=== PATIENT | female | born 1995 | race African-American/Black ===

== ENCOUNTER 2020-01-05 11:28 | Inpatient (IN) | payer OTHER ==
[2020-01-05] VITALS (30 sets, daily range): BP systolic 110–140; BP diastolic 61–91
[~2020-01-05] VITALS: Ht 160 cm; Wt 85.5 kg
[2020-01-05] MEDS: LR 1,000 ML IV SCH ×2 (00:30→21:35)
[2020-01-05] MEDS ORDERED: PRENTAB9 PO (11:54)
[2020-01-05] MEDS ORDERED: LACTATED RINGER'S 1000 ML IV STA (14:04)
--- NOTE | 2020-01-05 14:44 | HPEPDOC ---
Obstetrical History & Physical General Date of Admission Jan 05, 2020 at 14:00 History of Present Illness 24 yo at 41w1d with VIVIENNE of 12/28/2019 who presents to labor and delivery wi th complaints of contractions since 0100 this morning. She denies vaginal bleeding and leaking of fluid. She reports positive movement. Chief Complaint: Contractions, term Information Provided By: Patient Age: 24 : 1 Term: 0 Pre-term: 0 Abortions: 0 Livin Care Care: Good Care Number of Visits: 9 Dating Final EDC: Dec 28, 2019 Final EDC for Daily Update: Dec 28, 2019 Final EDC by: 1st trimester (US) LMP: Mar 31, 2019 1st Trimester Date: Jun 01, 2019 Weeks + Days: 10 (+0) Antepartum Course Diagnos(e)s Excessive weight gain during TWG 42# Height (inches): 64 Pre- weight (lbs.): 145 Admission Weight (lbs.): 187 Change in Weight (lbs.): 42 Past Medical History Past Obstetrical History : Past Obstetrical History: [employer] History: History of STD (history of chlamydia) Past Medical History Medical History Hgb C trait Surgical History: Denies/None Family History Significant Family History: Hypertension (Father, MGM, PGF), Lung disease (MGF: Lung CA), Other (PGF: Strokes, Mother and Brother: Sickle cell trait) Social History Marital Status: Single Psychosocial History: No pertinent psych hx * Smoker: non-smoker Alcohol: Denies Drugs: denies Abuse Violence Screening Have you been hit/kicked/slapp: No Have you been sexually assault: No Imunizations Tdap status: current Influenza Status: declined Allergies Coded Allergies: No Known Allergies (Unverified , 01/05/20) Medications Scheduled No.137/Iron/Folic Acd ( Vitamin Tablet) 1 Each Tablet, 1 TAB PO DAILY Physical Examination Physical Examination GENERAL: Alert and oriented times three. BREAST: . ABDOMEN: Gravid and non-tender to touch. FETUS: Is vertex (VTX) by sterile vaginal examination (SVE) and fetus is vertex (VTX) by Joshua. HEART RATE: Regular rate and rhythm. LUNGS: Clear to auscultation (CTA). EXTREMITIES: No edema. No clonus. Deep tendon reflexes (DTRs) + 2. Vital Signs/I&O Vital Signs Date Time Temp Pulse Resp B/P (MAP) Pulse Ox O2 Delivery O2 Flow Rate FiO2 01/05/20 13:09 96 18 131/61 (84) 01/05/20 11:52 98.6 98 Room Air Pertinent Laboratoy Data Blood Type: O+ RBC Antibody Screen: Negative HIV: Negative Hepatitis B: Negative Rapid Plasma Reagin: Nonreactive Rubella: Immune Varicella: Immune Chlamydia/Gonorrhea: Negative Group B Streptococcus: Negative Cystic Fibrosis: Negative Glucose Tolerance Test: 122 Anatomy Ultrasound Ultrasound Date: Sep 27, 2019 Placenta Location: Anterior Normal Anatomy: Yes Placenta Previa: No Estimated Weight (grams): 1053 Steroid Therapy Steroid Therapy: No Vaginal Examination Dilation: 4 cm (4-5) Effacement: 80% Station: -2 Cervical Consistency: Soft Cervical Position: Middle Presentation: Cephalic presentation Position: Vertex (occiput) Assessment Heart Rate (FHR): 145 Variability: Moderate Accelerations: Present Decelerations: None Tocometer Contractions: Yes Frequency: irregular Multi-drug resistant Organism: No history of MDRO Assessment/Plan Assessment The patient is a 24-year-old (G)1 para (P)0-0-0-0 at 41+1 weeks by 10- week ultrasound. Presents to Labor and Delivery (L&D) with complaints of contractions since 0100 this morning. Upon arrival to the unit for triage her cervical exam was 3/80/-3 and after 2 hours she has made cervical change to 4-5/80/-2, although her contractions did space out and became irregular. She reports that her contractions still remain painful despite becoming irregular. Post dates GBS negative Excessive weight gain in TW# Plan Admit and orient. Slot Supervisor and consent. Diet: clear liquids. Group B Streptococcus (GBS) negative. Labs and intravenous (IV) per unit protocol. Counseled on Pitocin and induction of labor (IOL). Lactated Ringers (LR): Bolus 1000 mL, then at 125 mL/hr. Anticipate normal spontaneous delivery (). C-S as appropriate. Labor and Delivery Counseling Discussed risks and process of laboring, post hemorrhage, possible need for using pitocin to augment her labor, and risks of section. All questions answered and she verbalized understanding of all information. HAROLDO BARRAGAN CNM Jan 05, 2020 14:43
[2020-01-05 14:50] LABS: HEMATOCRIT 34.2 % (36.0-47.0); MEAN CORPUSCULAR HEMOGLOBIN 26.4 pg (27.0-33.0); MEAN CORPUSCULAR HGB CONC 35.1 g/dl (32.0-36.5); MEAN CORPUSCULAR VOLUME 75.3 fl (80.0-96.0); PLATELET COUNT, AUTOMATED 212 10^3/uL (150-450); RED BLOOD COUNT 4.54 10^6/uL (4.00-5.40); WHITE BLOOD COUNT 10.4 10^3/uL (4.0-10.0)
[2020-01-05] MEDS ORDERED: FENTANYL 2MCG/ML ROPIVACAINE 0.2% IN 0.9% NACL 100ML IVBAG As Ordered ONE (20:27)
[2020-01-05] MEDS ORDERED: LACTATED RINGER'S 1000 ML IV PRN (20:35)
[2020-01-05] MEDS ORDERED: EPIDURAL COMMENT XX SCH (20:35)
[2020-01-05] MEDS ORDERED: REFRIGERATOR IV KEYS XX PRN (20:35)
[2020-01-05] MEDS: FENTANYL/ROPIVACAINE/NACL BAG 100 ML EPIDURAL SCH (20:35)
[2020-01-05] MEDS ORDERED: diphenhydrAMINE 50MG/ML VIAL (J1200) IV PRN (20:35)
[2020-01-05] MEDS ORDERED: NALOXONE INJ 0.4MG/1ML VIAL (J2310 PER 1MG) IV PRN (20:35)
[2020-01-05] MEDS ORDERED: EPIDURAL/PCA KEYS XX PRN (20:35)
[2020-01-05] MEDS ORDERED: ONDANSETRON 4MG/2ML VIAL IV PRN (20:35)
[2020-01-05] MEDS ORDERED: ePHEDrine SULFATE 25 MG/5 ML(5MG/ML) SYRINGE IV PRN (20:35)
[2020-01-05] MEDS ORDERED: OXYTOCIN 30 UNITS IN 0.9% NaCl 500ML IV BAG (J2590) As Ordered ONE (21:24)
--- NOTE | 2020-01-05 21:31 | IPNPDOC ---
Obstetrical Progress Note Date of Service Jan 05, 2020 Subjective Patient reports feeling very comfortable after epidural placement. Denies complaints. Objective Vital Signs Date Time Temp Pulse Resp B/P (MAP) Pulse Ox O2 Delivery O2 Flow Rate FiO2 01/05/20 18:03 98.2 70 18 131/83 (99) 01/05/20 11:52 98 Room Air Assessment Heart Rate (FHR): 125 Variability: Moderate Accelerations: Positive Decelerations: None Heart Rate Tracing: Category I Tocometer Contractions: Yes Frequency: every 3-7 min. Sterile Vaginal Examination Dilation: 4 cm Effacement (%): 90% Station: -2 Cervical Consistency: Soft Cervical Position: Posterior Postion/Presentation: Cephalic presentation Assessment and Plan Status: Reassuring Group B Streptococcus: Negative Anticipate: Vaginal Delivery Additional Comments 24yo at 41+1 admitted in latent labor at late term gestation. Patient received epidural and feeling much more comfortable. SVE revealed 4/90/-2. Patient counseled on augmentation of labor. Patient desired to proceed with AROM. AROM performed notable for clear fluid. Patient's ctx's continued to decrease in frequency to q7-10 minutes. Patient counseled on augmentation of labor with pitocin protocol and was amenable. Will start pitocin protocol now. FHRT cat I. Patient desires to proceed, safe to continue. BRENNA ALMANZA DO Jan 05, 2020 21:30
[2020-01-05] MEDS ORDERED: OXYTOCIN DRIP 30 UNITS in IV 1 EA IV SCH (21:45)
[2020-01-06] VITALS (24 sets, daily range): BP systolic 107–154; BP diastolic 56–89
[2020-01-06] MEDS ORDERED: diphenhydrAMINE 50MG/ML VIAL (J1200) As Ordered ONE (02:19)
--- NOTE | 2020-01-06 03:15 | IPNPDOC ---
Obstetrical Progress Note Date of Service Jan 06, 2020 Subjective Patient reports feeling comfortable with epidural but has had to do repositioning and epidural boluses to achieve this. Objective Vital Signs Date Time Temp Pulse Resp B/P (MAP) Pulse Ox O2 Delivery O2 Flow Rate FiO2 01/06/20 02:48 99.8 84 16 123/74 (90) 01/05/20 11:52 98 Room Air Assessment Heart Rate (FHR): 145 Variability: Moderate Accelerations: Positive Decelerations: Variable Heart Rate Tracing: Category II Tocometer Contractions: Yes Frequency: every 2-5 min. Sterile Vaginal Examination Dilation: 5 cm Effacement (%): 90% Station: -1 Cervical Consistency: Soft Cervical Position: Middle Postion/Presentation: Cephalic presentation Assessment and Plan Status: Reassuring Group B Streptococcus: Negative Anticipate: Vaginal Delivery Additional Comments 24yo at 41+2wks admitted for latent labor and late term gestation. FHRT has been intermittently cat II for variable decels, rare late decels but also reassuring with accels and early decels and moderate variability. Multiple positions attempted with right/left/back/sitting up with and without peanut ball. Unable to put on hands/knees due to epidural effect. FHRT improved with sitting up. Pitocin at 4mU/min. Ctx's q2-5 minutes apart with coupling noted intermittently. Will continue to monitor closely. Will consider IUPC with amnioinfusion if variables return. SVE noted to stretch to 5/90/-1 demonstrating cervical change since my last exam. BRENNA ALMANZA DO Jan 06, 2020 03:15
[2020-01-06] MEDS: FENTANYL/ROPIVACAINE/NACL BAG 100 ML EPIDURAL SCH ×2 (04:08→16:35)
--- NOTE | 2020-01-06 04:40 | IPNPDOC ---
Obstetrical Progress Note Date of Service Jan 06, 2020 Subjective Patient reports no complaints Objective Vital Signs Date Time Temp Pulse Resp B/P (MAP) Pulse Ox O2 Delivery O2 Flow Rate FiO2 01/06/20 02:48 99.8 84 16 123/74 (90) 01/05/20 11:52 98 Room Air Assessment Heart Rate (FHR): 140 Variability: Moderate Accelerations: None Decelerations: Variable Heart Rate Tracing: Category II Tocometer Contractions: Yes Frequency: every 2-5 min. Sterile Vaginal Examination Dilation: 5 cm Effacement (%): 90% Station: 0 Cervical Consistency: Soft Cervical Position: Middle Postion/Presentation: Cephalic presentation Assessment and Plan Status: Reassuring Group B Streptococcus: Negative Anticipate: Vaginal Delivery Additional Comments Recurrent variable decels nadiring to the 80s noted despite positional changes and IV fluid boluses. Pitocin turned off with minimal improvement in variable decels. SVE revealed 5/90/-1. Patient counseled on option of IUPC placement for amnioinfusion and FSE placement for closer monitoring of FHR due to broken tracing with variable decels. Patient willing to proceed with amnioinfusion and tolerated FSE/IUPC placement well. Will given 500ml NS for amnioinfusion. After amnioinfusion started, variable decels resolved with FHRT cat I. CTX's noted to be q2-3min on maternal effort alone. Reassuring status at this time. Will continue to monitor closely for expectant . BRENNA ALMANZA DO Jan 06, 2020 04:40
[2020-01-06] MEDS ORDERED: NS 1,000 ML IV ONE (04:45)
[2020-01-06] MEDS ORDERED: diphenhydrAMINE 50MG/ML VIAL (J1200) IV ONE (04:45)
[2020-01-06] MEDS: LR 1,000 ML IV SCH ×2 (06:20→09:04)
[2020-01-06] MEDS ORDERED: BICITRA 30ML SOLN UDC As Ordered ONE (07:13)
[2020-01-06] MEDS ORDERED: ceFAZolin 2 GM/D5W 50 ML IV BAG (J0690 PER 500MG) As Ordered ONE (07:13)
[2020-01-06] MEDS ORDERED: AZITHROMYCIN INJ 500MG VIAL (J0456 PER 500MG) As Ordered ONE (07:14)
--- NOTE | 2020-01-06 07:18 | IPNPDOC ---
Obstetrical Progress Note Date of Service Jan 06, 2020 Subjective Patient resting comfortably in bed. Reports no complaints. Objective Vital Signs Date Time Temp Pulse Resp B/P (MAP) Pulse Ox O2 Delivery O2 Flow Rate FiO2 01/06/20 05:18 99.8 106 18 118/63 (81) 01/05/20 11:52 98 Room Air Assessment Heart Rate (FHR): 140 Variability: Moderate Accelerations: Positive Decelerations: Late, Variable Heart Rate Tracing: Category II Tocometer Contractions: Yes Frequency: other (MVU inadequate 135) Sterile Vaginal Examination Dilation: 5 cm Effacement (%): 90% Station: -1 Cervical Consistency: Soft Cervical Position: Anterior Postion/Presentation: Cephalic presentation Assessment and Plan Status: Non-reassuring Group B Streptococcus: Negative Anticipate: Vaginal Delivery Additional Comments Patient has made minimal cervical change since AROM. Pitocin was turned off due to variable decels which have greatly improved after amnioinfusion but have returned to recurrent deep variables and intermittent late decels. Unable to augment labor due to cat II FHRT. Given clinical picture, patient counseled on recommendation to proceed with PLTCS for NRFHR remote from delivery. Patient counseled on the r/b/a/i of PLTCS, acknowledged understanding and desired to proceed. Written consents reviewed and signed. OR team notified. Ancef 2gm and Azithromycin 500mg IV enroute to OR. BRENNA ALMANZA DO Jan 06, 2020 07:18
[2020-01-06] MEDS ORDERED: MORPHINE PRES-FREE INJ 10 MG/10 ML VIAL (J2274) As Ordered ONE (07:23)
[2020-01-06] MEDS ORDERED: OXYTOCIN INJ 10 UNITS/ML VIAL (J2590) As Ordered ONE (07:24)
[2020-01-06] MEDS ORDERED: KETAMINE HCL 200 MG/20 ML VIAL As Ordered ONE (07:55)
[2020-01-06] MEDS ORDERED: MIDAZOLAM INJ 2MG/2ML VIAL (J2250 PER 1MG) As Ordered ONE (07:57)
[2020-01-06] MEDS ORDERED: ceFAZolin SOD 2 GM in IV 1 EA IV ONE (08:00)
[2020-01-06] MEDS ORDERED: AZITHROMYCIN INJ 500 MG, VIAL MATE ADAPTER 1 EACH in D5W 250 ML IV ONE (08:00)
[2020-01-06] MEDS ORDERED: BICITRA 30ML SOLN UDC PO ONE (08:00)
[2020-01-06] MEDS ORDERED: ONDANSETRON 4MG/2ML VIAL As Ordered ONE (08:02)
[2020-01-06] MEDS ORDERED: dexameTHASONE 4 MG/ML 1ML VIAL (J1100 PER 1MG) As Ordered ONE (08:02)
[2020-01-06] MEDS ORDERED: ACETAMINOPHEN 500 MG TAB PO PRN (08:45)
[2020-01-06] MEDS ORDERED: PERCOCET 5MG/325MG TAB PO PRN ×2 (08:45)
[2020-01-06] MEDS ORDERED: ACETAMINOPHEN TAB 650MG DOSE (2X325MG) PO PRN (08:45)
[2020-01-06] MEDS ORDERED: ONDANSETRON 4MG/2ML VIAL IV PRN ×3 (08:45→09:52)
[2020-01-06] MEDS ORDERED: DOCUSATE SODIUM 100 MG CAP PO PRN (08:45)
[2020-01-06] MEDS ORDERED: oxyCODONE 5MG TAB PO PRN (09:00)
[2020-01-06] MEDS: PRENATAL VITAMINS CHEWABLE TABLET PO SCH (09:00)
[2020-01-06] MEDS ORDERED: fentaNYL 100 MCG/2 ML INJECTION (J3010) As Ordered ONE (09:01)
[2020-01-06] MEDS: fentaNYL 100 MCG/2 ML INJECTION (J3010) IV PRN ×2 (09:04→09:15)
[2020-01-06] MEDS ORDERED: KETOROLAC 30 MG/ML 1ML VIAL As Ordered ONE (09:17)
[2020-01-06] MEDS: KETOROLAC 30 MG/ML 1ML VIAL IV SCH ×3 (09:17→21:59)
[2020-01-06] MEDS ORDERED: NALBUPHINE HCL 10 MG/ML AMP (J2300) IV PRN (09:52)
[2020-01-06] MEDS ORDERED: NALOXONE INJ 0.4MG/1ML VIAL (J2310 PER 1MG) IV PRN ×2 (09:52)
[2020-01-06] MEDS ORDERED: diphenhydrAMINE 50MG/ML VIAL (J1200) IV PRN (09:52)
[2020-01-06] MEDS ORDERED: METOCLOPRAMIDE INJ 10MG/2ML VIAL (J2765 PER 1) IV PRN (09:52)
[2020-01-07 02:00] VITALS: BP 116/74
[2020-01-07] MEDS: KETOROLAC 30 MG/ML 1ML VIAL IV SCH (02:47)
[2020-01-07 06:00] VITALS: BP 111/55
--- NOTE | 2020-01-07 07:34 | IPNPDOC ---
Progress Note Date of Service: Jan 07, 2020 Day#: 1 Progress Note SUBJECT: 24yo POD1 s/p now c/b GHTN. She has been ambulating, vo iding spontaneously without issue and tolerating regular diet. Breast feeding without issue. Reports lochia is less than a normal period. Patient is ambulating well. Denies any pain. Voiding and passing flatus difficulty. OBJECTIVE: VITAL SIGNS: Within normal limits, afebrile. Alert and oriented times three. no increased WOB non-tachycardic Abdomen: Fundus firm at U-2. Soft, NTTP. Minimal lochia. pressure dressing removed, pfannenstiel incision is clean dry and well approximated with steri strips, no erythema or discharge ASSESSMENT: 24yo POD1 s/p now c/b GHTN. Vitals within normal limits, afebrile, hemodynamically stable with no evidence of infection. No si/sx of pre-e. PLAN: 1. Discharge to home today. 2. continue current pain regimen. 3. Encourage breast feeding and ambulation. 4. undecided on control, edcuated on close interval 5. Routine PP visit in 2 and 6 weeks in clinic. 6. Discussed return precautions at length. 7. pre-eclampsia labs pending VS, I&O, 24H, Fishbone Vital Signs/I&O Vital Signs Date Time Temp Pulse Resp B/P (MAP) Pulse Ox O2 Delivery O2 Flow Rate FiO2 01/07/20 02:00 97.9 100 20 116/74 (88) 98 Room Air I&O- Last 24 Hours up to 6 AM 01/07/20 06:00 Output Total 3100 ml Balance -3100 ml ZULEYKA CARLTON DO Jan 07, 2020 07:34
[2020-01-07] MEDS ORDERED: INFLUENZA QUADRIVALENT PF VACCINE 0.5ML SYRINGE IM ONE (09:00)
[2020-01-07 10:00] VITALS: BP 117/55
[2020-01-07] MEDS: PRENATAL VITAMINS CHEWABLE TABLET PO SCH (10:11)
[2020-01-07] MEDS: IBUPROFEN 800 MG TAB PO SCH ×2 (10:11→18:37)
[2020-01-07 14:00] VITALS: BP 122/57
[2020-01-07 18:00] VITALS: BP 138/85
[2020-01-07 22:00] VITALS: BP 130/76
[2020-01-08 02:00] VITALS: BP 132/80
[2020-01-08] MEDS: IBUPROFEN 800 MG TAB PO SCH ×3 (02:16→18:28)
[2020-01-08 05:58] VITALS: BP 122/80
[2020-01-08] MEDS ORDERED: IBUP80TA PO (06:47)
[2020-01-08] MEDS ORDERED: PERCOCET PO (06:47)
[2020-01-08] MEDS ORDERED: DOCU100C16 PO (06:47)
[2020-01-08] MEDS: PRENATAL VITAMINS CHEWABLE TABLET PO SCH (07:33)
[2020-01-08] MEDS: ACETAMINOPHEN 500 MG TAB PO SCH ×2 (13:36→18:28)
[2020-01-08 17:53] VITALS: BP 136/78
[2020-01-09] MEDS: ACETAMINOPHEN 500 MG TAB PO SCH ×3 (00:11→13:24)
[2020-01-09] MEDS: IBUPROFEN 800 MG TAB PO SCH ×2 (02:18→10:32)
--- NOTE | 2020-01-09 05:18 | IPNPDOC ---
Progress Note Date of Service: Jan 09, 2020 Day#: 3 Progress Note SUBJECT: Abhijit is a 24-year-old 1 now Para 1 status post uncomplicat ed PLTCS at 41+2/7 weeks. She has been ambulating, voiding spontaneously without issue and tolerating regular diet. She report she is and it is going well. Reports lochia is decreasing. Reports pain is well-controlled on current pain meds. OBJECTIVE: VITAL SIGNS: Within normal limits, afebrile. Alert and oriented times three. No exaggerated respiratory effort appreciated Well-perfused Abdomen: Fundus firm at U-2. Soft, NTTP. Incision: c/d/i with dressing in place Scant lochia on peripad Extremities without edema, no calf tenderness ASSESSMENT: Abhijit is a 24-year-old 1 now Para 1 status post uncomplicated PLTCS for NRFHR and GHTN at 41+2/7 weeks after IOL for late term gestation. Patient doing well on day 3. Vitals within normal limits, afebrile, hemodynamically stable with no evidence of infection. PLAN: 1. Discharge to boarder status today 2. Continue current pain mgmt 3. Encourage breast feeding with consultation PRN 4. Encourage regular diet and ambulation OOB as tolerated 5. Follow up visit in 2 weeks in clinic. 6. Discussed return precautions at length. VS, I&O, 24H, Fishbone Vital Signs/I&O Vital Signs Date Time Temp Pulse Resp B/P (MAP) Pulse Ox O2 Delivery O2 Flow Rate FiO2 01/08/20 17:53 98.3 87 136/78 (97) 01/08/20 05:58 18 97 Room Air I&O- Last 24 Hours up to 6 AM 01/09/20 06:00 Intake Total 840 ml Balance 840 ml BRENNA ALMANZA DO Jan 09, 2020 05:18
[2020-01-09 06:00] VITALS: BP 149/91
[2020-01-09] MEDS: PRENATAL VITAMINS CHEWABLE TABLET PO SCH (10:32)
--- NOTE | 2020-01-11 10:29 | IPN ---
DATE: 01/06/2020 This patient requested circumcision of her male . After discussing risks and benefits of circumcision, the medical and nonmedical indications, the penile block, and aftercare, expressed understanding of penile di, aftercare, and bleeding, signed the consent form. All questions were answered. A 20-minute discussion. We await the clearance by the museum librarian. SIRI
--- NOTE | 2020-01-11 12:58 | DS ---
DATE OF ADMISSION: 01/05/2020 DATE OF DISCHARGE: 01/08/2020 DATE OF SERVICE: 01/08/2020 24-year-old, 1, now para 1, admitted at 41 and 1 weeks of gestation with contractions. She had a primary section for nonreassuring heart tones, vacuum assisted arrest of descent, live male , 8 pounds 0 ounces, scores of 8 and 9 at 1 and 5 minutes, respectively. On her second day, we discussed phlebitis, cystitis, mastitis, endometritis, cellulitis, diet, exercise, pain management, perineal, breast, and wound care. Blood pressure on discharge 122/80, respirations 18, pulse 84, temperature is 99.3. Her admitting hemoglobin was 12.0, hematocrit 34.2, and platelets were 212. The rest of the examination is unremarkable. Normocephalic, atraumatic. Neck full range of motion. Pupils equal and reactive to light. Distal pulses are symmetric. No evidence of deep venous thrombosis (DVT), pulmonary embolus (PE), or superficial phlebitis. Chest is clear bilaterally to bases. No wheezes or rhonchi. No costovertebral angle (CVA) tenderness. Abdomen is soft, four quadrant bowel sounds are noted. Incision is clean and dry. She has no rashes, lesions, or pruritus. No arthralgia, myalgia, no complaint of joint pain. No complaint of cough, wheeze, shortness of breath, or dyspnea on exertion. No nausea, vomiting, diarrhea, or constipation. No urgency or frequency. She is planned for discharge today. Medications were picked up at [facility]. She will make a 2 week incision and a 6 week check. At the present time, control is undefined. All questions were answered, 20 minute discussion. SIRI
--- NOTE | 2020-01-11 21:30 | ROOPDOC ---
[facility] Report Of Operation Report of Operation DATE OF PROCEDURE: 01/06/20 PREPROCEDURE DIAGNOSES: 1.) Late term gestation. 2.) Nonreassuring heart rate POSTPROCEDURE DIAGNOSES: 1.) Late term gestation 2.) Nonreassuring heart rate PROCEDURE: 1.) Primary low transverse section SURGEON: Brenna Almanza MD SALES CORRESPONDENCE CLERK: Beck Leal MD ANESTHESIA: Epidural. ESTIMATED BLOOD LOSS: Approximately 500mL. COMPLICATIONS: none. Fluids: 1300ml LR Urine output: 100ml REMARKS: Normal-appearing uterus, bilateral fallopian tubes and ovaries. Male infant in cephalic, LOP presentation, with APGARS 8/9 and weighing 3620g. DESCRIPTION OF PROCEDURE: The risks, benefits, indications and alternatives of the procedure were reviewed with the patient and informed consent was obtained. The patient was taken to the operating room where epidural anesthesia was found to be adequate. She was then prepped and draped in the normal, sterile fashion in the dorsal supine position with a leftward tilt. A Pfannenstiel skin incision was then made with the scalpel and carried through to the underlying layer of fascia. The fascia was incised in the midline and the incision extended laterally with blunt dissection. Rectus muscles were then at the midline; the peritoneum identified, tented up, and entered with bluntly. The peritoneal incision was then extended horizontally/superiorly with good visualization of the bladder. The Mobius self-retaining retractor was then introduced into the abdomen. The vesicouterine peritoneum was then identified and incised with the scalpel and a bladder flap made with blunt dissection. Next, the lower uterine segment was incised in a transverse fashion with the scalpel. The amniotic sac was a rtificially ruptured, productive of clear fluid. The uterine incision was then extended manually in a superior-lateral fashion. The bladder blade was removed and infant was found to be in cephalic, LOP presentation. Baby was delivered without difficulty through the hysterotomy site. The cord was then doubly clamped and cut. The infant was handed off to the waiting pediatricians. The placenta was then removed spontaneously with gently traction on the umbilical cord. The uterus was then cleared of all clots and debris and the uterine incision was repaired with 0-monocryl in a running, locked fashion. A second layer of 0-monocryl was then used to embricate the hysterotomy site in a horizontal fashion. The Mobius retractor was removed and the hysterotomy was again noted to be hemostatic. The fascia was reapproximated with 0-vicryl in a running/non-locking fashion. The subcutaneous tissue was reapproximated with three interrupted sutures of 3-0 vicryl. The skin was closed with 4-0 monocryl in a subcuticular fashion. The incision was then dressed and a pressure dressing applied. At the completion of the case, bimanual exam performed with good uterine tone and minimal vaginal bleeding. The patient tolerated the procedure well. Sponge, lap and needle counts were correct times three. The patient was taken to the recovery room in stable condition. . BRENNA ALMANZA DO Jan 11, 2020 21:30
== END 2020-01-09 14:20 | disposition home or self-care (01) | DRG 773 ==
LOC: M LDO 11:28 → M LDI 14:00 → M OBS 01-06 10:55
PROVIDERS: ADMIT Registered Nurse Maternal Newborn; ATTEND Registered Nurse Maternal Newborn
PROC: 10907ZC Drainage of Amniotic Fluid, Therapeutic from Products of Conception, Via Natural or Artificial Opening (ICD-10-PCS; 2020-01-05)
PROC: 3E0E77Z Introduction of Electrolytic and Water Balance Substance into Products of Conception, Via Natural or Artificial Opening (ICD-10-PCS; 2020-01-06)
PROC: 10D00Z1 Extraction of Products of Conception, Low, Open Approach (ICD-10-PCS; principal; 2020-01-06 07:30)
DX: O48.0 Post-term pregnancy (principal); Z3A.41 41 weeks gestation of pregnancy; O76 Abnormality in fetal heart rate and rhythm complicating labor and delivery; O13.5 Gestational [pregnancy-induced] hypertension without significant proteinuria, complicating the puerperium; Z37.0 Single live birth